=== PATIENT | male | born 1995 | race Caucasian/White ===

== ENCOUNTER 2017-03-02 05:10 | Emergency (ER) | payer OTHER ==
[2017-03-02 05:11] VITALS: BMI 18.8
[2017-03-02 05:19] VITALS: BP 130/87; TEMP 98.2
--- NOTE | 2017-03-02 05:43 | C.PDOC ---
History Of Present Illness The patient, a 21 y/o male, presents to the ED for evaluation after he awoke with left-sided neck pain this morning. Patient reports neck stiffness and states his pain is worse with movement. He denies fever, chills, headache, throat pain, recent injury/trauma to the affected area. Time Seen by Provider: 03/02/17 05:25 Chief Complaint (Nursing): Medical Clearance History Per: Patient History/Exam Limitations: no limitations Onset/Duration Of Symptoms: Hrs Current Symptoms Are (Timing): Still Present Additional History Per: Patient Past Medical History Reviewed: Historical Data, Nursing Documentation, Vital Signs Vital Signs: Last Vital Signs Temp 98.2 F 03/02/17 05:17 Pulse 67 03/02/17 06:09 Resp 17 03/02/17 06:09 BP 130/87 03/02/17 05:17 Pulse Ox 97 03/02/17 06:09 - Medical History PMH: No Chronic Diseases Surgical History: No Surg Hx Family History: States: Unknown Family Hx - Social History Hx Tobacco Use: No Hx Alcohol Use: No Hx Substance Use: No - Immunization History Hx Tetanus Toxoid Vaccination: No Hx Influenza Vaccination: No Hx Pneumococcal Vaccination: No Review Of Systems Except As Marked, All Systems Reviewed And Found Negative. Constitutional: Negative for: Fever, Chills ENT: Negative for: Throat Pain Musculoskeletal: Positive for: Neck Pain Neurological: Negative for: Headache Physical Exam - Physical Exam Appears: Non-toxic, No Acute Distress Skin: Normal Color, Warm, Dry Head: Atraumatic, Normacephalic Eye(s): bilateral: Normal Inspection, PERRL, EOMI Oral Mucosa: Moist Throat: Normal, No Erythema, No Exudate Neck: No Normal ROM (limited secondary to pain with left lateral motion of neck ), No Midline Cervical Tenderness, Paracervical Tenderness (left ), No Other ( no cervical spine tenderness. no neck swelling. no palpable mass) Chest: Symmetrical, No Deformity, No Tenderness Cardiovascular: Rhythm Regular, No Murmur Respiratory: Normal Breath Sounds, No Rales, No Rhonchi, No Wheezing Back: Normal Inspection, No Vertebral Tenderness, No Paraspinal Tenderness Extremity: Normal ROM (b/l upper and lower extremities ), Capillary Refill ( less than 2 seconds) Neurological/Psych: Oriented x3, Normal Speech, Normal Cognition, Normal Motor, Other (no focal deficits ) Gait: Steady ED Course And Treatment O2 Sat by Pulse Oximetry: 100 (on RA ) Pulse Ox Interpretation: Normal Progress Note: Patient received Toradol IM and Valium PO. On reassessment, patient is resting comfortably, showing no signs of distress, and reports an improvement of his neck pain. Patient is stable for discharge from the ED and is advised to follow up with his PMD within a timely manner for further evaluation. Reassessment Condition: Improved Disposition Counseled Patient/Family Regarding: Diagnosis, Need For Followup, Rx Given - Disposition Referrals: [facility] [Outside] Disposition: HOME/ ROUTINE Disposition Time: 05:41 Condition: STABLE Additional Instructions: Please follow up in clinic Apply warm compress to neck Take meds as directed Return to ER if worse Prescriptions: Cyclobenzaprine [Cyclobenzaprine HCl] 10 mg PO BID #14 tab Ibuprofen [Motrin] 600 mg PO Q6H #30 tab Instructions: Cervical Strain (DC) Print Language: L[place]GISH - Clinical Impression Clinical Impression: Cervical muscle strain - PA / PROGRAM SUPPORT CLERK / Resident Statement MD/DO has reviewed & agrees with the documentation as recorded. - Scribe Statement The provider has reviewed the documentation as recorded by the Scribe (Juliet Neumann) All medical record entries made by the Scribe were at my direction and personally dictated by me. I have reviewed the chart and agree that the record accurately reflects my personal performance of the history, physical exam, medical decision making, and the department course for this patient. I have also personally directed, reviewed, and agree with the discharge instructions and disposition.
[2017-03-02 06:10] VITALS: PULSE 67; RESP 17
[2017-03-02 06:16] VITALS: O2SAT 100
== END 2017-03-02 06:09 | disposition home or self-care (01) ==
LOC: C.ER 05:10
DX: S16.1XXA Strain of muscle, fascia and tendon at neck level, initial encounter (principal); X58.XXXA Exposure to other specified factors, initial encounter
CPT/HCPCS: 96372; 99282; J1885